=== PATIENT | female | born 1960 | race Caucasian/White ===

== ENCOUNTER 2023-05-27 12:39 | Day surgery (SDC) | payer MEDICARE, OTHER ==
[~2023-05-27] VITALS: Ht 170.2 cm; Wt 106.2 kg
[~2023-05-27 12:39] MED LIST: Lactated Ringer's 1,000 ML IV ONE; propofoL 50 ML IV ONE
[2023-05-27] MEDS ORDERED: OXYB5 (12:59)
[2023-05-27] MEDS ORDERED: CODACE30 (13:02)
[2023-05-27] MEDS ORDERED: ATOR20 (13:02)
[2023-05-27] MEDS ORDERED: METF500C (13:03)
[2023-05-27] MEDS ORDERED: HYDROCHLOROTH12.5 MG (13:03)
[2023-05-27] MEDS ORDERED: LAMO100 (13:03)
[2023-05-27] MEDS ORDERED: LISI20 (13:03)
[2023-05-27] MEDS ORDERED: NORTRIPTYLINE H2512 (13:04)
[2023-05-27] MEDS ORDERED: METO50 (13:04)
[2023-05-27] MEDS ORDERED: VENL150ER (13:05)
[2023-05-27] MEDS ORDERED: TIZA4 (13:05)
[2023-05-27] MEDS ORDERED: Lactated Ringer's 1,000 ML IV ONE (13:30)
== END 2023-05-27 15:47 | disposition home or self-care (01) ==
LOC: ORSCSDS 12:39
PROVIDERS: Internal Medicine Gastroenterology
PROC: 0DB58ZX Excision of Esophagus, Via Natural or Artificial Opening Endoscopic, Diagnostic (ICD-10-PCS; principal; 2023-05-27 14:15)
PROC: 0D757ZZ Dilation of Esophagus, Via Natural or Artificial Opening (ICD-10-PCS; principal; 2023-05-27 14:15)
PROC: 0DB98ZX Excision of Duodenum, Via Natural or Artificial Opening Endoscopic, Diagnostic (ICD-10-PCS; principal; 2023-05-27 14:15)
PROC: 0DB68ZX Excision of Stomach, Via Natural or Artificial Opening Endoscopic, Diagnostic (ICD-10-PCS; principal; 2023-05-27 14:15)
DX: R13.10 Dysphagia, unspecified (principal); K59.09 Other constipation; K21.00 Gastro-esophageal reflux disease with esophagitis, without bleeding; E11.9 Type 2 diabetes mellitus without complications; I10 Essential (primary) hypertension; F41.9 Anxiety disorder, unspecified; M79.7 Fibromyalgia; E78.2 Mixed hyperlipidemia; E66.9 Obesity, unspecified; K31.9 Disease of stomach and duodenum, unspecified; Z68.37 Body mass index [BMI] 37.0-37.9, adult; Z79.84 Long term (current) use of oral hypoglycemic drugs; Z79.899 Other long term (current) drug therapy
CPT/HCPCS: 82947; J2704; J7120